=== PATIENT | male | born 1995 | race Caucasian/White ===

== ENCOUNTER 2018-11-22 06:24 | Emergency (ER) | payer BC ==
[2018-11-22] MEDS ORDERED: Ondansetron PF 4 MG/2 ML Vial ONE (06:47)
[2018-11-22 07:01] LABS: #Basophils 0.1 thou/uL (0.0-0.2); #Eosinphils 0.1 thou/uL (0.0-0.7); #Lymphocytes 1.5 thou/uL (1.20-3.40); #Monocytes 0.5 thou/uL (0.11-0.59); %Basophils 0.8 % (0.0-1.0); %Eosinophils 1.4 % (0.0-10.0); %Lymphocytes 16.5 % (21.0-51.0); %Neutrophils 76.3 % (42.0-75.0); Hemoglobin 10.8 g/dL (14.0-18.0); Mean Corpuscular HGB CONC 31.7 g/dL (32.0-36.0); Mean Corpuscular Hemoglobin 25.6 pg (27.0-31.0); Mean Corpuscular Volume 80.7 fL (78.0-98.0); Mean Platelet Volume 7.2 fL (7.4-10.4); Platelet Count 236 thou/uL (130-400); Red Blood Cell (RBC) Count 4.21 mill/uL (4.70-6.10); White Blood Cell (WBC) Count 9.1 thou/uL (4.8-10.8)
[2018-11-22 07:05] LABS: INR-International Normal Ratio 1.1; PTT 34.1 SEC (22.9-36.1); Prothrombin Time 14.4 SEC (12.0-14.7)
[2018-11-22 07:06] LABS: D-Dimer Test 1.08 *mcg/mL (0.27-0.43)
[2018-11-22 07:21] LABS: ALT (SGPT) 8 U/L (8-55); AST (SGOT) 26 U/L (5-34); Albumin 3.3 g/dL (3.5-5.0); Alkaline Phosphatase 88 U/L (40-150); Anion Gap 14 mmol/L (10-20); BUN (Urea Nitrogen) 5 mg/dL (8.9-20.6); Bilirubin, Total 0.4 mg/dL (0.2-1.2); CK (CPK) 45 U/L (30-200); Calc. Creatinine Clearance 0 mL/min (70-130); Calcium 8.8 mg/dL (7.8-10.44); Carbon Dioxide 22 mmol/L (22-29); Chloride 109 mmol/L (98-107); Estimated GFR-MDRD Greater than 90; Globulin 3.4 g/dL (2.4-3.5); Glucose 109 mg/dL (70-105); Potassium 3.5 mmol/L (3.5-5.1); Protein, Total 6.7 g/dL (6.0-8.3); Sodium 141 mmol/L (136-145)
--- NOTE | 2018-11-22 07:40 | RAD ---
RADIOGRAPH CHEST 1 VIEW: DATE: 11/22/2018 TIME: 7:02 AM HISTORY: 23-year-old male with dyspnea COMPARISON: None are available FINDINGS: Diffuse bilateral mixed interstitial and alveolar infiltrates, more confluent and more alveolar on th e right than left. Right-sided PICC with distal tip overlying lower SVC. Cardiac size within normal limits. No pneumothorax. IMPRESSION: Diffuse bilateral infiltrates, right greater than left. Severe pneumonia versus pulmonary edema versu s combination of both.
[2018-11-22] MEDS ORDERED: Morphine 10 MG/ML VIAL ONE (07:52)
[2018-11-22] MEDS ORDERED: Furosemide 40 MG/4 ML VIAL ONE (07:52)
--- NOTE | 2018-11-22 08:02 | CT ---
CT angiogram thorax with contrast: (CTA pulmonary angiogram) DATE: 11/22/2018 HISTORY: 23-year-old male with dyspnea TECHNIQUE: IV injection of iodinated contrast. Scan acquisition timing attempted to coincide with iodinated contrast bolus reaching maximal density in pulmonary arteries. 3-D MIP reconstructions. FINDINGS: There are diffuse bilateral multifocal alveolar infiltrates throughout the left upper lobe, left lowe r lobe, and right lower lobe. These alveolar infiltrates are confluent into larger regions of consolidation throughout much of the right upper lobe and right middle lobe. These are interspersed b y heterogeneously distributed groundglass densities throughout the rest of the lungs. There are bilateral pleural effusions that occupy approximately 20% volume of each hemithorax. There are multip le moderately enlarged mediastinal lymph nodes in all spaces, and mildly to moderately large bilateral hilar lymph nodes. There is no evidence of pulmonary thromboembolism. No thoracic aortic aneurysm or dissection. IMPRESSION: 1. No pulmonary thromboembolism. 2. Extensive bilateral mixed interstitial and alveolar infiltrates, right worse than left. Possibilit ies include severe pneumonia versus pulmonary edema versus combination of both. 3. Bilateral pleural effusions. 4. Mediastinal and hilar lymphadenopathy.
[2018-11-22] MEDS ORDERED: Cefepime 2 GM VIAL ONE (08:37)
[2018-11-22] MEDS ORDERED: Fluconazole 100 MG TAB ONE (08:37)
[2018-11-22] MEDS ORDERED: metroNIDAZOLE 250 MG TAB ONE (08:37)
[2018-11-22] MEDS ORDERED: Sodium Chloride 0.9% 100 ML ONE (08:37)
[2018-11-22] MEDS ORDERED: Iopamidol 370 76% 200 ML VIAL ONE (14:12)
[2018-11-22] MEDS ORDERED: Sodium Chloride 0.9% 100 ML BAG ONE (14:12)
[2018-11-22] MEDS ORDERED: Sodium Chloride 0.9% 1,000 ML BAG ONE (14:16)
== END 2018-11-22 10:35 | disposition short-term general hospital (02) ==
LOC: MADERS 06:24
DX: J81.1 Chronic pulmonary edema (principal); Z79.899 Other long term (current) drug therapy
CPT/HCPCS: 71045; 71275; 80053; 82550; 83880; 84484; 85025; 85379; 85610; 85730; 87040; 93005; 94760; 96365; 96375; J0692; J1940; J2270; J2405; J3490; J7050

== ENCOUNTER 2019-01-19 14:46 | Emergency (ER) | payer SELFPAY ==
[2019-01-19] MEDS ORDERED: Potassium Chloride 20 MEQ TAB ONE (15:17)
[2019-01-19 15:30] LABS: #Eosinphils 0.1 thou/uL (0.0-0.7); #Lymphocytes 1.7 thou/uL (1.20-3.40); #Monocytes 0.4 thou/uL (0.11-0.59); #Neutrophils 2.4 thou/uL (1.40-6.50); %Eosinophils 3.2 % (0.0-10.0); %Lymphocytes 35.7 % (21.0-51.0); %Neutrophils 52.2 % (42.0-75.0); Hemoglobin 12.4 g/dL (14.0-18.0); Mean Corpuscular HGB CONC 35.3 g/dL (32.0-36.0); Mean Corpuscular Hemoglobin 28.1 pg (27.0-31.0); Mean Corpuscular Volume 79.4 fL (78.0-98.0); Mean Platelet Volume 7.7 fL (7.4-10.4); Platelet Count 172 thou/uL (130-400); RBC Distribution Width 13.2 % (11.5-14.5); White Blood Cell (WBC) Count 4.6 thou/uL (4.8-10.8)
[2019-01-19 15:45] LABS: ALT (SGPT) 17 U/L (8-55); AST (SGOT) 16 U/L (5-34); Albumin 3.9 g/dL (3.5-5.0); Alkaline Phosphatase 79 U/L (40-150); Anion Gap 13 mmol/L (10-20); BUN (Urea Nitrogen) 5 mg/dL (8.9-20.6); Bilirubin, Total 0.3 mg/dL (0.2-1.2); Calc. Creatinine Clearance 0 mL/min (70-130); Calcium 8.4 mg/dL (7.8-10.44); Carbon Dioxide 26 mmol/L (22-29); Chloride 106 mmol/L (98-107); Estimated GFR-MDRD Greater than 90; Globulin 3.1 g/dL (2.4-3.5); Glucose 99 mg/dL (70-105); Potassium 3.1 mmol/L (3.5-5.1); Sodium 142 mmol/L (136-145)
== END 2019-01-19 16:04 | disposition home or self-care (01) ==
LOC: MADERS 14:46
DX: E87.6 Hypokalemia (principal); L08.9 Local infection of the skin and subcutaneous tissue, unspecified; I50.9 Heart failure, unspecified; F17.210 Nicotine dependence, cigarettes, uncomplicated; F41.9 Anxiety disorder, unspecified; Z79.899 Other long term (current) drug therapy
CPT/HCPCS: 36415; 80053; 85025; 93005